=== PATIENT | male | born 1975 ===

== ENCOUNTER 2024-05-14 09:21 | Emergency (ER) | payer OTHER ==
[~2024-05-14] VITALS: Ht 175.3 cm; Wt 81.8 kg
[2024-05-14 09:55] VITALS: TEMP 98.2
[2024-05-14 10:05] VITALS: BP 122/82; PULSE 80; RESP 16; O2SAT 100
== END 2024-05-14 11:56 ==
LOC: EMS 09:21
DX: Z00.8 Encounter for other general examination (principal); F17.210 Nicotine dependence, cigarettes, uncomplicated; F15.10 Other stimulant abuse, uncomplicated
CPT/HCPCS: 74176; 99284; Z7502